=== PATIENT | male | born 1975 | race Hispanic/Latino ===

== ENCOUNTER 2023-09-18 20:55 | Emergency (ER) | payer OTHER ==
[~2023-09-18] VITALS: Ht 175.3 cm; Wt 117.9 kg
[2023-09-18 22:11] VITALS: BP 142/92; PULSE 92; RESP 20; O2SAT 96
[2023-09-18] MEDS: IBUPROFEN 800 MG TAB PO ONE (22:33)
[2023-09-18] MEDS ORDERED: CYCL-309 PO (22:52)
[2023-09-18] MEDS ORDERED: IBUP-2077 PO (22:52)
== END 2023-09-18 23:24 | disposition home or self-care (01) ==
LOC: EDH 20:55
DX: S46.912A Strain of unspecified muscle, fascia and tendon at shoulder and upper arm level, left arm, initial encounter (principal); Z88.0 Allergy status to penicillin; V89.2XXA Person injured in unspecified motor-vehicle accident, traffic, initial encounter; Y93.89 Activity, other specified; Y92.89 Other specified places as the place of occurrence of the external cause; Y99.8 Other external cause status
CPT/HCPCS: 73030